=== PATIENT | female | born 1970 | race Caucasian/White ===

== ENCOUNTER 2018-04-01 10:48 | Emergency (ER) | payer BC ==
[2018-04-01 11:32] LABS: ABS Basophils 0.1 10^3/ul (0-0.2); ABS Eosinophils 0.2 10^3/ul (0-0.6); ABS Lymphocytes 2.5 10^3/ul (1.0-4.8); ABS Monocytes 0.6 10^3/ul (0-0.8); ABS Neutrophils 4.4 10^3/ul (1.5-7.7); ABS Nucleated RBC 0 10^3/ul; Eosinophil % 2.7 % (0-6); Hematocrit 39 % (35-47); Hemoglobin 13.3 g/dl (12.0-16.0); Lymphocyte % 31.9 % (25-47); Mean Corpuscular HGB Conc 34 g/dl (31-36); Mean Corpuscular Hemoglobin 31 pg (27-31); Mean Corpuscular Volume 91 fL (80-97); Mean Platelet Volume 9.7 um3 (7.4-10.4); Nucleated Red Blood Cells % 0; Platelet Count 196 10^3/ul (150-450); Red Blood Count 4.31 10^6/ul (4.0-5.4); Red Cell Distribution Width 13 % (10.5-15); White Blood Count 7.8 10^3/ul (3.5-10.8)
[2018-04-01 11:42] LABS: INR 1.23 (0.77-1.02)
--- NOTE | 2018-04-01 11:44 | ED ---
Shortness of Breath - HPI Summary HPI Summary: Patient is a 48yo otherwise healthy F presenting to the ED with shortness of breath. She states she was dx with DVT 2 days ago and placed on xarelto, has been taking this for 1.5 days. Called MD today to discuss new onset SOB. sent here to ED for evaluation. Denies feelings of heart racing, nervousness, diaphoresis, chest pain. Denies hx of SOB, chest pain or previous PE or DVT. Approximately 1 month ago was traveling to [facility] and noticed her left leg swollen when she arrived [place] to the [place]. She states the leg decreased in size until 3 days ago when she felt she pulled her calf muscle and received an US which showed a DVT - partially occlusive thrombus in the proximal deep femoral vein on the left. Hx of heart murmur, but otherwise healthy, taking no medications. Denies any and all other symptoms. - History of Current Complaint Chief Complaint: EDChestWallPain Time Seen by Provider: 04/01/18 11:12 Hx Obtained From: Patient Onset/Duration: Sudden Onset Timing: Constant Current Severity: Moderate Dyspnea At: Rest Aggrevating Factors: Deep Breaths Associated Signs & Symptoms: Negative, Calf Pain/Swelling - DVT to the L leg - Risk Factors Pulmonary Embolism: Recent Travel, DVT Cardiac: Negative Pseudomonas: Negative Tuberculosis: Negative - Allergy/Home Medications Allergies/Adverse Reactions: Allergies Allergy/AdvReac Type Severity Reaction Status Date / Time No Known Allergies Allergy Mild See Comment Verified 04/01/18 12:01 Home Medications: Home Medications Rivaroxaban TAB(*) [Xarelto 15 mg(*)] 15 mg PO BID 04/01/18 [History Confirmed 04/01/18] PMH/Surg Hx/FS Hx/Imm Hx Previously Healthy: Yes - Cancer History Hx Chemotherapy: No Hx Radiation Therapy: No - Immunization History Hx Pertussis Vaccination: No Immunizations Up to Date: Unable to Obtain/Confirm Infectious Disease History: No Infectious Disease History: Denies: Traveled Outside the [place] in Last 30 Days - Social History Occupation: Employed Full-time Lives: With Family Alcohol Use: Occasionally Hx Substance Use: No Substance Use Type: Reports: None Hx Tobacco Use: No Smoking Status (MU): Never Smoked Tobacco Review of Systems Constitutional: Negative Negative: Fever, Chills, Fatigue, Skin Diaphoresis Cardiovascular: Negative Positive: Shortness Of Breath Genitourinary: Negative Positive: no symptoms reported, see HPI Musculoskeletal: Negative Skin: Negative Neurological: Negative Psychological: Normal All Other Systems Reviewed And Are Negative: Yes Physical Exam Triage Information Reviewed: Yes Vital Signs On Initial Exam: Initial Vitals Temp Pulse Resp BP Pulse Ox 97.8 F 55 16 126/69 100 04/01/18 10:52 04/01/18 10:52 04/01/18 10:52 04/01/18 10:52 04/01/18 10:52 Vital Signs Reviewed: Yes Appearance: Positive: Well-Appearing, Well-Nourished Skin: Positive: Warm, Skin Color Reflects Adequate Perfusion Head/Face: Positive: Normal Head/Face Inspection Eyes: Positive: EOMI, JOSE, Conjunctiva Clear Neck: Positive: Supple, No Lymphadenopathy Respiratory/Lung Sounds: Positive: Clear to Auscultation, Breath Sounds Present Cardiovascular: Positive: RRR, Pulses are Symmetrical in both Upper and Lower Extremities Musculoskeletal: Positive: Normal, Strength/ROM Intact Psychiatric: Positive: Normal, Affect/Mood Appropriate AVPU Assessment: Alert Diagnostics - Vital Signs Vital Signs Temp Pulse Resp BP Pulse Ox 04/01/18 10:52 97.8 F 55 16 126/69 100 - Laboratory Lab Results: Lab Results 04/01/18 Range/Units 11:23 WBC 7.8 (3.5-10.8) 10^3/ul RBC 4.31 (4.0-5.4) 10^6/ul Hgb 13.3 (12.0-16.0) g/dl Hct 39 (35-47) % MCV 91 (80-97) fL MCH 31 (27-31) pg MCHC 34 (31-36) g/dl RDW 13 (10.5-15) % Plt Count 196 (150-450) 10^3/ul MPV 9.7 (7.4-10.4) um3 Neut % (Auto) 56.1 (38-83) % Lymph % (Auto) 31.9 (25-47) % [place] % (Auto) 8.3 H (0-7) % Eos % (Auto) 2.7 (0-6) % Baso % (Auto) 1.0 (0-2) % Absolute Neuts (auto) 4.4 (1.5-7.7) 10^3/ul Absolute Lymphs (auto) 2.5 (1.0-4.8) 10^3/ul Absolute Monos (auto) 0.6 (0-0.8) 10^3/ul Absolute Eos (auto) 0.2 (0-0.6) 10^3/ul Absolute Basos (auto) 0.1 (0-0.2) 10^3/ul Absolute Nucleated RBC 0 10^3/ul Nucleated RBC % 0 Result Diagrams: 04/01/18 11:23 04/01/18 11:23 Lab Statement: Any lab studies that have been ordered have been reviewed, and results considered in the medical decision making process. Course/Dx - Course Course Of Treatment: Patient is evaluated for SOB. Labs obtained. CTA ordered d/t recent DVT and now new onset SOB. CTA shows no evidence of PE. TROP obtained and negative x 2. Patient is feeling improved compared to this morning. O2 remains 100%. Other VS stable. Patient is made aware of results and is OK for discharge at this time. She will follow up with PCP. - Diagnoses Provider Diagnoses: Shortness of breath Discharge - Sign-Out/Discharge Documenting (check all that apply): Discharge/Admit/Transfer - Discharge Plan Condition: Stable Disposition: HOME Referrals: Karey Walter MD [Primary Care Provider] - Additional Instructions: Please follow up with PCP No evidence of pulmonary embolism on CTA of chest Continue with all your medications as prescribed - Billing Disposition and Condition Condition: STABLE Disposition: HOME
--- OUTSIDE RECORDS SUMMARY | 2018-04-01 11:53 | XMS REPORT ---
:1970 External Reference #:[id number] Author Organization [facility] Address [address] [place] [address] Phone [phone] Care Team Providers Name Role Phone Karey Walter M.D. Care Team Information Emergency Services Professional Unavailable Karey Walter M.D. Primary Care Physician Unavailable Payers Type Date Identification Numbers Payment Provider Subscriber Commercial Effective: Policy Number: [id number] [employer] Plan Cheli Miller 2017 Group Number: [id number] [address] PayID: [id number] [place] [address] Problems Description No Information Family History Date Family Member(s) Problem(s) Comments Father [place] In early 70s Father Hypertension Mother Graves' Disease Mother Sjogren's Syndrome Mother Autoimmune Disease First Sister Breast Cancer Paternal Grandfather due to Prostate Cancer () Social History Type Date Description Comments Marital Status . 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 Cigarette Use Nonsmoker ETOH Use Social Alcohol Smoking Nonsmoker Allergies, Adverse Reactions, Alerts Date Description Reaction Status Severity Comments 09/02/2017 NKDA active Medications Medication Date Status Form Strength Qnty SIG Indications Ordering Provider No Active 09/02/2017 Active Unknown Medications Immunizations CPT Code Status Date Vaccine Lot # [id number] Given 09/02/2017 Influenza Vac, Quadrivalent, Slit Virus, Im [id number] Vital Signs Date Vital Result Comment 03/29/2018 BP Systolic 116 mmHg BP Diastolic 62 mmHg Heart Rate 52 /min Body Temperature 97.8 F Respiratory Rate 16 /min Height 64 inches 5'4" Weight 145.00 lb BMI (Body Mass Index) 24.9 kg/m2 09/02/2017 BP Systolic 100 mmHg BP Diastolic 60 mmHg Heart Rate 56 /min Body Temperature 97.7 F Respiratory Rate 16 /min Height 64 inches 5'4" Weight 145.25 lb BMI (Body Mass Index) 24.9 kg/m2 Results Test Date Test Result H/L Range Note CBC With Differential/Platelet 09/02/2017 WBC 6.7 x10E3/uL 3.4-10.8 1 RBC 4.39 x10E6/uL 3.77-5.28 1 Hemoglobin 13.2 g/dL 11.1-15.9 1 Hematocrit 40.3 % 34.0-46.6 1 MCV 92 fL 79-97 1 MCH 30.1 pg 26.6-33.0 1 MCHC 32.8 g/dL 31.5-35.7 1 RDW 13.8 % 12.3-15.4 1 Platelets 245 x10E3/uL 150-379 1 Neutrophils 51 % Not Estab. 1 Lymphs 39 % Not Estab. 1 Monocytes 7 % Not Estab. 1 Eos 2 % Not Estab. 1 Basos 1 % Not Estab. 1 Immature Cells TNP 1 Neutrophils (Absolute) 3.4 x10E3/uL 1.4-7.0 1 Lymphs (Absolute) 2.6 x10E3/uL 0.7-3.1 1 Monocytes(Absolute) 0.5 x10E3/uL 0.1-0.9 1 Eos (Absolute) 0.1 x10E3/uL 0.0-0.4 1 Baso (Absolute) 0.0 x10E3/uL 0.0-0.2 1 Immature Granulocytes 0 % Not Estab. 1 Immature Grans (Abs) 0.0 x10E3/uL 0.0-0.1 1 NRBC TNP 1 Hematology Comments: TNP 1 Laboratory test finding 09/02/2017 Vitamin B12 476 pg/mL 211-946 1 Folate (Folic Acid), Serum 7.1 ng/mL >3.0 1, 2 Celiac Disease Comprehensive 09/02/2017 Deamidated Gliadin Abs, 4 units 0 -19 1, 3 IgA Deamidated Gliadin Abs, IgG 5 units 0-19 1, 4 t-Transglutaminase (tTG) IgA <2 U/mL 0-3 1, 5 t-Transglutaminase (tTG) IgG <2 U/mL 0-5 1, 6 Endomysial Antibody IgA Negative Negative 1 Immunoglobulin A, Qn, Serum 181 mg/dL 87-352 1 Iron And Tibc 09/02/2017 Iron Bind.Cap.(Tibc) 297 g/dL 250-450 1 Uibc 165 g/dL 131-425 1 Iron, Serum 132 g/dL 27-159 1 Iron Saturation 44 % 15-55 1 1 3 sst 2 A serum folate concentration of less than 3.1 ng/mL is considered to represent clinical deficiency. 3 Negative 0 - 19 Weak Positive 20 - 30 Moderate to Strong Positive >30 4 Negative 0 - 19 Weak Positive 20 - 30 Moderate to Strong Positive >30 5 Negative 0 - 3 Weak Positive 4 - 10 Positive >10 Tissue Transglutaminase (tTG) has been identified as the endomysial antigen. Studies have demonstr- ated that endomysial IgA antibodies have over 99% specificity for gluten sensitive enteropathy. 6 Negative 0 - 5 Weak Positive 6 - 9 Positive >9 Procedures Date CPT Code Description Status 08/23/2017 Mammogram Completed Encounters Type Date Location Provider CPT E/M Dx Office Visit 09/02/2017 8:00a [facility] [place] [id number] R19.7 R14.0 Z23 Plan of Care 03/29/2018 - Benita Yung-[id number] Pain in left ankle and joints of left footFollow up:Followup:. (Follow up)AllComments:~B_~U_Medication Management ~b_~u_ Patient Understands medications she's taking? Yes No no routine meds Are there Barriers to Adherence? Yes No na Has the patient been asked about herbal supplements and therapies, and OTC meds? Yes No ~B_~U_Care Plan~b_~u_1. Patient has beenqueried about patient's goals/ preferences and functional/lifestyle goals at relevant visits. If relevant, describe: na2. Treatment goals as explained to the patient: abovepain relief, further eval 3. Are there barriers to meeting treatment goals? Yes No If Yes, please describe:4. Self-Management goals as described to the patient: Yes No this does not appear clinically to be a dvt butwe can get a sonogram for further assessment cont nsaid for pain f/u pending test results
[2018-04-01] MEDS ORDERED: Iohexol 350* (CONTRAST) 500 ML MDV IV ONE (12:00)
--- NOTE | 2018-04-01 13:20 | RAD ---
INDICATION: Shortness of breath in a woman recently diagnosed with DVT. COMPARISON: None TECHNIQUE: Axial source images were acquired following the administration of 61 mL Omnipaque [address] angiographic technique. Coronal and sagittal reconstructed images were constructed and reviewed. FINDINGS: There there are no filling defects in the pulmonary arteries to indicate acute pulmonary embolic disease. There are no focal infiltrates or effusions. There are no pulmonary parenchymal masses. The heart is normal in size. There is no evidence of pericardial effusion. There is no evidence of aortic aneurysm or dissection. There is no mediastinal, hilar, or axillary lymphadenopathy. The visualized osseous structures appear normal. Limited views of the upper abdomen show no abnormalities. IMPRESSION: No CT of evidence of pulmonary embolism or other acute thoracic abnormality.
[2018-04-01 14:11] VITALS: BP 110/71
== END 2018-04-01 14:10 | disposition home or self-care (01) ==
LOC: ED 10:48
DX: R06.02 Shortness of breath (principal); I82.4Y2 Acute embolism and thrombosis of unspecified deep veins of left proximal lower extremity; Z79.01 Long term (current) use of anticoagulants
CPT/HCPCS: 36415; 71275; 80053; 83605; 83880; 84484; 85025; 85610; 85730; 93005; 99283; Q9967